=== PATIENT | male | born 1955 | race Two or more races ===

== ENCOUNTER 2020-03-15 08:05 | Day surgery (SDC) | payer OTHER ==
[~2020-03-15 08:05] MED LIST: NORVASC5 MG PO; NOVOLIN
[2020-03-16] MEDS ORDERED: PERCOCET 5-3251 EACH PO (11:43)
== END 2020-03-15 12:55 | disposition home or self-care (01) ==
LOC: EDBD 08:05 → AMB-ENDOS 08:05 → EDBD 11:30 → AMB-ENDOS 11:30
PROVIDERS: ATTEND Surgery
DX: C20 Malignant neoplasm of rectum (principal)

== ENCOUNTER 2020-03-16 08:57 | Day surgery (SDC) | payer OTHER ==
[2020-03-16] MEDS ORDERED: PERCOCET 5-3251 EACH PO (11:43)
== END 2020-03-16 15:15 | disposition home or self-care (01) ==
LOC: EDBD → CIR.AMB 08:57
PROVIDERS: ATTEND Surgery
DX: C20 Malignant neoplasm of rectum (principal); Z20.828 Contact with and (suspected) exposure to other viral communicable diseases
CPT/HCPCS: 36561; C1751